=== PATIENT | male | born 1970 | race Two or more races ===

== ENCOUNTER 2021-12-24 22:32 | Emergency (ER) | payer OTHER ==
[~2021-12-24] VITALS: Ht 167.6 cm; Wt 105.0 kg
[2021-12-24] MEDS ORDERED: EPINEPHrine HCL 1 MG/10 ML SYRG IV ONE (22:33)
== END 2021-12-25 02:45 ==
LOC: EDBD 22:32 → ER 22:32
DX: I46.9 Cardiac arrest, cause unspecified (principal); V23.4XXA Motorcycle driver injured in collision with car, pick-up truck or van in traffic accident, initial encounter; Y93.89 Activity, other specified; Y92.410 Unspecified street and highway as the place of occurrence of the external cause; Y99.8 Other external cause status
CPT/HCPCS: 31500; 92950; 99285; J0171